=== PATIENT | female | born 1980 | race Two or more races ===

== ENCOUNTER 2018-06-29 08:57 | Emergency (ER) | payer OTHER ==
[2018-06-29] MEDS ORDERED: IBUPROFEN 600 MG TAB PO ONE (09:18)
--- NOTE | 2018-06-29 09:19 | EDPHY ---
H & P Stated Complaint: right wrist inj lifting on at work . Time Seen by Provider: 06/29/18 09:13 HPI/ROS: CHIEF COMPLAINT: Right wrist pain HISTORY OF PRESENT ILLNESS: Patient is a 38-year-old female who comes to the emergency department complaining of right wrist pain. She states that on night she was trying to get something stuck out of a bright at work with a spatula. She twisted and lifted her hand dorsally abruptly and had significant pain in the dorsal aspect of her wrist. She did not fall. She did not hit it on anything. She has had mild pain since that time. She has normal range of motion. No visible swelling or erythema. No breaks in the skin. Severity: Moderate Modifying factors: None REVIEW OF SYSTEMS: Constitutional: denies: chills, fever, recent illness, recent injury EENTM: denies: blurred vision, double vision, nose congestion Respiratory: denies: cough, shortness of breath Cardiac: denies: chest pain, irregular heart rate, lightheadedness, palpitations Gastrointestinal/Abdominal: denies: abdominal pain, diarrhea, nausea, vomiting, blood streaked stools Genitourinary: denies: dysuria, frequency, hematuria, pain Musculoskeletal: See HPI Skin: denies: lesions, rash, jaundice, bruising Neurological: denies: headache, numbness, paresthesia, tingling, dizziness, weakness Hematologic/Lymphatic: denies: blood clots, easy bleeding, easy bruising Immunologic/allergic: denies: HIV/AIDS, transplant 10 systems reviewed and negative except as noted EXAM: GENERAL: Well-appearing, well-nourished and in no acute distress. HEAD: Atraumatic, normocephalic. EYES: Pupils equal round and reactive to light, extraocular movements intact, sclera anicteric, conjunctiva are normal. ENT: TMs normal, nares patent, oropharynx clear without exudates. Moist mucous membranes. NECK: Normal range of motion, supple without lymphadenopathy or JVD. LUNGS: Breath sounds clear to auscultation bilaterally and equal. No wheezes rales or rhonchi. HEART: Regular rate and rhythm without murmurs, rubs or gallops. ABDOMEN: Soft, nontender, normoactive bowel sounds. No guarding, no rebound. No masses appreciated. BACK: No CVA tenderness, no spinal tenderness, step-offs or deformities EXTREMITIES: Normal range of motion, no pitting or edema. No clubbing or cyanosis. No weakness. No abrasions. No swelling. NEUROLOGICAL: Cranial nerves II through XII grossly intact. Normal speech, normal gait. 5/5 strength, normal movement in all extremities, normal sensation , normal reflexes PSYCH: Normal mood, normal affect. SKIN: Warm, dry, normal turgor, no visible rashes or lesions. Source: Patient Exam Limitations: No limitations - Personal History LMP (Females 10-55): 15-21 Days Ago Current Tetanus/Diphtheria Vaccine: No Current Tetanus Diphtheria and Acellular Pertussis (TDAP): Yes - Medical/Surgical History Hx Asthma: No Hx Chronic Respiratory Disease: No Hx Diabetes: No Hx Cardiac Disease: No Hx Renal Disease: No Hx Cirrhosis: No Hx Alcoholism: No Hx HIV/AIDS: No Other PMH: gallbladder - Family History Significant Family History: No pertinent family hx - Social History Smoking Status: Current every day smoker Alcohol Use: None Constitutional: Initial Vital Signs Temperature (C) 36.8 C 06/29/18 09:10 Heart Rate 60 06/29/18 09:10 Respiratory Rate 16 06/29/18 09:10 Blood Pressure 113/73 06/29/18 09:10 O2 Sat (%) 98 06/29/18 09:10 O2 Delivery Mode Room Air Allergies/Adverse Reactions: No Known Allergies Allergy (Unverified 06/29/18 09:14) Home Medications: Medication Instructions Recorded NK [No Known Home Meds] 06/29/18 Medical Decision Making - Diagnostics Imaging Results: Imaging Impressions Wrist X-Ray 06/29/18 09:16 Impression: Normal. Imaging: Discussed imaging studies w/ psychiatric arnp Radiologist Procedures: Procedure: Splint placement. A Velcro splint was applied. After application of the splint I returned and re- examined the patient. The splint was adequately immobilizing the joint and distal to the splint the patient's circulation and sensation was intact. ED Course/Re-evaluation: We discussed the x-ray results the patient is reassured. Will place in a Velcro wrist splint for comfort and rest. Encouraged ibuprofen. Will refer to Hand for follow-up if necessary. Discussed activity as tolerated. And removal of the splint as tolerated. Differential Diagnosis: Partial list of the Differential diagnosis considered include but were not limited to; contusion, wrist strain, fracture and although unlikely based on the history and physical exam, I also considered infection, gout, arthritis, carpal tunnel. I discussed these differential diagnoses and the plan with the patient as well as the usual and expected course. The patient understands that the diagnosis is provisional and that in medicine we are not always correct and that further workup is often warranted. Usual and customary warnings were given. All of the patient's questions were answered. The patient was instructed to return to the emergency department should the symptoms at all worsen or return, otherwise to followup with the physician as we discussed. - Data Points Medications Given: Discontinued Medications Ibuprofen (Motrin) 600 mg PO EDNOW ONE Stop: 06/29/18 09:19 Last Admin: 06/29/18 09:24 Dose: 600 mg Departure - Departure Disposition: Home, Routine, Self-Care Clinical Impression: Wrist pain, right Condition: Fair Instructions: Wrist Injury (ED) Referrals: RICK CHANG [Other] - As per Instructions Kvng Chavarria MD [Medical Doctor] - 5-7 days, if not improved Stand Alone Forms: Work Limited Duty, Work Excuse Print Language: Frisian
[2018-06-29 10:14] VITALS: BP 149/75
== END 2018-06-29 10:14 | disposition home or self-care (01) ==
LOC: CED 08:57
DX: M25.531 Pain in right wrist (principal); X50.1XXA Overexertion from prolonged static or awkward postures, initial encounter; Y93.G3 Activity, cooking and baking; Y99.0 Civilian activity done for income or pay
CPT/HCPCS: 73110-PO; 99283-ER; L3984